=== PATIENT | female | born 1960 | race Two or more races ===

== ENCOUNTER 2024-11-22 16:58 | Emergency (ER) | payer MEDICAID, OTHER ==
[~2024-11-22] VITALS: Ht 162.6 cm; Wt 72.6 kg
[2024-11-22 18:57] LABS: Basophils # (auto) 0.1 10 ^3/uL (0-0.2); Basophils % (auto) 0.7 % (0.0-2.0); Eosinophils # (auto) 0.3 10 ^3/uL (0-0.8); Eosinophils % (auto) 3.6 % (0.0-7.0); Hematocrit 41.4 % (36.0-46.0); Hemoglobin 13.8 g/dL (12.2-16.2); Lymphocytes # (auto) 2.6 10 ^3/uL (0.4-5.4); Lymphocytes % (auto) 31.3 % (10.0-50.0); Mean Corpuscular Hemoglobin 31.3 pg (28.0-32.0); Mean Corpuscular Hgb Conc. 33.4 g/dL (32.0-36.0); Mean Corpuscular Volume 93.7 fL (80.0-100.0); Monocytes # (auto) 0.6 10 ^3/uL (0-1.3); Monocytes % (auto) 7.1 % (0.0-12.0); Neutrophils # (auto) 4.8 10 ^3/uL (1.6-8.6); Neutrophils % (auto) 57.3 % (37.0-80.0); Nucleated Red Blood Cells % 0.1 %; Platelet Count (auto) 281 10^3/uL (140-450); Red Blood Cells 4.42 10^6/uL (4.0-5.20); Red Cell Distribution Width 12.9 % (11.8-14.3); White Blood Cell 8.4 10^3/uL (4.4-10.8)
[2024-11-22 19:18] LABS: Alanine Aminotransferase 25 U/L (7-40); Albumin 4.7 g/dL (3.2-4.8); Alkaline Phosphatase 97 U/L (46-116); Anion Gap 7 (5-15); Aspartate Aminotransferase 24 U/L (13-40); BUN/Creatinine Ratio 14.8 (10.0-20.0); Blood Urea Nitrogen 12 mg/dL (9-23); Calcium 10.3 mg/dL (8.7-10.4); Carbon Dioxide 28 mmol/L (20-31); Chloride 105 mmol/L (98-107); Glucose 95 mg/dL (74-106); Lipase 51 U/L (12-53); Potassium 4.4 mmol/L (3.5-5.1); Sodium 140 mmol/L (136-145); Total Protein 7.3 g/dL (5.7-8.2)
--- NOTE | 2024-11-22 19:18 | DVH ---
EXAMINATION: AP portable chest radiograph CLINICAL HISTORY: Shortness a breath COMPARISON: None FINDINGS: Mild central interstitial prominence. No dominant consolidation. The costophrenic angles appear yudelka ar. No sizable pleural effusion or pneumothorax identified. Aortic calcifications. The cardiomediast inal silhouette otherwise appears within normal limits given technique. IMPRESSION: Mild central interstitial prominence is relatively nonspecific but can be seen with edema, reactive a irway changes as well as atypical / viral infection. Please correlate clinically.
[2024-11-22 19:23] LABS: Bilirubin, Total 0.3 mg/dL (0.2-1.0)
--- NOTE | 2024-11-22 22:36 | ED.PDOC ---
History of Present Illness HPI Comments This patient is a 64-year-old [id number]-iftlmwoy female who arrives the ED today with the family due to complaints of generalized weakness and fall events over the past 12 days. Family states the patient should signs of weakness at that time and that it has been relatively consistent. Family denies any nausea or vomiting but states possible intermittent fever. Patient was hypertensive on arrival. Family states the patient does have a history of hypertension and does utilize medication. Chief Complaint: General Weakness Time Seen by MD: 17:44 Reviewed Notes: Nurses Notes Allergies: Coded Allergies: NO KNOWN ALLERGIES (Unverified , 11/22/24) Information Source: Patient, Relative Mode of Arrival: Ambulatory Severity: Moderate Timing: Weeks Duration: Since onset Prehospital treatment: None Past Medical History PAST MEDICAL HISTORY: HTN Surgical History: Denies all surgeries MEDICAL PARASITOLOGIST History: No Pertinent MEDICAL PARASITOLOGIST History Family History Family History: Reviewed,noncontributory to illness, No family hx of Cancer, No family hx of DM, No family hx of Heart mena, No family hx of HTN, No family hx ofKidney mena, No family hx of Liver mena, No family hx of Lung mena, No family hx of Stroke Social History Smoker: Non-Smoker Alcohol: Denies ETOH Use Drugs: Denies Drug Use Lives In: Home Constitutional: reports: fatigue, fever, malaise, weakness; denies: chills, diaphoresis, sweats, others EENTM: denies: blurred vision, double vision, ear bleeding, ear discharge, ear drainage, ear pain, ear ringing, eye pain, eye redness, hearing loss, mouth pain, mouth swelling, nasal discharge, nose bleeding, nose congestion, nose pain, photophobia, tearing, throat pain, throat swelling, voice changes, others Respiratory: denies: cough, hemoptysis, orthopnea, SOB at rest, shortness of breath, SOB with excertion, stridor, wheezing, others Cardiovascular: denies: chest pain, dizzy spells, diaphoresis, Dyspnea on exertion, edema, irregular heart beat, left arm pain, lightheadedness, palpitations, PND, syncope, others Gastrointestinal: denies: abdomen distended, abdominal pain, blood streaked bowels, constipated, diarrhea, dysphagia, difficulty swallowing, hematemesis, melena, nausea, poor appetite, poor fluid intake, rectal bleeding, rectal pain, vomiting, others Genitourinary: denies: abnormal vagina bleeding, burning, dyspareunia, dysuria, flank pain, frequency, hematuria, incontinence, pain, , vagina discharge, urgency, others Neurological: denies: dizziness, fainting, headache, left sided numbness, left sided weakness, numbness, paresthesia, pre-existing deficit, right sided numbness, right sided weakness, seizure, speech problems, tingling, tremors, weakness, others Musculoskeletal: denies: back pain, gout, joint pain, joint swelling, muscle pain, muscle stiffness, neck pain, others Integumetry: denies: bruises, change in color, change in hair/nails, dryness, laceration, lesions, lumps, rash, wounds, others Allergic/Immunocompromised: denies: Difficulty Healing, Frequent Infections, Hives, Itching, others Hematologic/Lymphatic: denies: anemia, blood clots, easy bleeding, easy bruising, swollen glands, others Endocrine: denies: excessive hunger, excessive sweating, excessive thirst, excessive urination, flushing, intolerance to cold, intolerance to heat, unexplained weight gain, unexplained weight loss, others Psychiatric: denies: anxiety, bipolar disorder, depression, hopeless, panic disorder, schizophrenia, sleepless, suicidal, others Physical Exam General Appearance: Moderate Distress (Patient appears a hofr-sp-frjyljuobr ill 64-year-old female.), Normal HEENT: Normal ENT Inspection, Pharynx Normal, TMs Normal Neck: Full Range of Motion, Non-Tender, Normal, Normal Inspection Respiratory: Chest Non-Tender, Lungs Clear, No Accessory Muscle Use, No Respiratory Distress, Normal Breath Sounds Cardiovascular: No Edema, No JVD, No Murmur, No Gallop, Normal Peripheral Pulses, Regular Rate/Rhythm Breast Exam: Deferred Gastrointestinal: No Organomegaly, Non Tender, No Pulsatile Mass, Normal Bowel Sounds, Soft Genitalia: Deferred Pelvic: Deferred Rectal: Deferred Extremities: No calf tenderness, Normal capillary refill, Normal range of motion, Non-tender, No pedal edema Neurologic: Alert, No Motor Deficits, Normal Mood, No Sensory Deficits Cerebellar Function: Normal Reflexes: Normal Skin: Dry, Normal Color, Warm Lymphatic: No Adenopathy Was a procedure done? Was a procedure done?: No Differential Dx Considerations may include: Sepsis, electrolyte abnormality, UTI, pneumonia, viral illness X-Ray, Labs, Meds, VS Vital Signs Date Time Temp Pulse Resp B/P (MAP) Pulse Ox O2 Delivery O2 Flow Rate FiO2 11/22/24 21:47 98.2 69 18 146/86 (106) 98 98.2 11/22/24 17:49 83 11/22/24 17:49 99.0 81 18 173/93 (119) 97 Lab Test 11/23/24 01:27 11/23/24 00:17 11/22/24 19:45 11/22/24 18:28 Range/Units Urine Color Light-yellow Yellow Urine Clarity Clear Clear Urine pH 6.0 5.0-9.0 Urine Specific [place] 1.016 1.001-1.035 Urine Protein Negative Negative Urine Ketones Negative Negative Urine Blood Negative Negative /uL Urine Nitrite Negative Negative Urine Bilirubin Negative Negative Urine Urobilinogen Normal Negative mg/dL Urine Leukocyte Esterase 2+ Negative /uL Urine RBC 3 0 - 4 /hpf Urine WBC 13 0 - 5 /hpf Urine Squamous Epithelial Cells Few <5 /hpf Urine Bacteria None seen None Seen /hpf Urine Yeast (Budding) Occasional None Seen /hpf Urine Glucose Normal Normal mg/dL Influenza Type A Antigen Negative Negative Influenza Type B Antigen Negative Negative SARS-CoV-2 Antigen (Rapid) Negative NEGATIVE Troponin I High Sensitivity < 3 L < 3 L </=34 ng/L White Blood Count 8.4 4.4-10.8 10^3/uL Red Blood Count 4.42 4.0-5.20 10^6/uL Hemoglobin 13.8 12.2-16.2 g/dL Hematocrit 41.4 36.0-46.0 % Mean Corpuscular Volume 93.7 80.0-100.0 fL Mean Corpuscular Hemoglobin 31.3 28.0-32.0 pg Mean Corpuscular Hemoglobin Concent 33.4 32.0-36.0 g/dL Red Cell Distribution Width 12.9 11.8-14.3 % Platelet Count 281 140-450 10^3/uL Mean Platelet Volume 8.9 6.9-10.8 fL Neutrophils (%) (Auto) 57.3 37.0-80.0 % Lymphocytes (%) (Auto) 31.3 10.0-50.0 % Monocytes (%) (Auto) 7.1 0.0-12.0 % Eosinophils (%) (Auto) 3.6 0.0-7.0 % Basophils (%) (Auto) 0.7 0.0-2.0 % Neutrophils # (Auto) 4.8 1.6-8.6 10 ^3/uL Lymphocytes # (Auto) 2.6 0.4-5.4 10 ^3/uL Monocytes # (Auto) 0.6 0-1.3 10 ^3/uL Eosinophils # (Auto) 0.3 0-0.8 10 ^3/uL Basophils # (Auto) 0.1 0-0.2 10 ^3/uL Nucleated Red Blood Cells 0.1 % D-Dimer, Quantitative 0.58 H 0.0-0.49 mg/L FEU Sodium Level 140 136-145 mmol/L Potassium Level 4.4 3.5-5.1 mmol/L Chloride Level 105 98-107 mmol/L Carbon Dioxide Level 28 20-31 mmol/L Anion Gap 7 5-15 Blood Urea Nitrogen 12 9-23 mg/dL Creatinine 0.81 0.550-1.02 mg/dL Glomerular Filtration Rate Calc 81 >90 mL/min BUN/Creatinine Ratio 14.8 10.0-20.0 Serum Glucose 95 74-106 mg/dL Calcium Level 10.3 8.7-10.4 mg/dL Total Bilirubin 0.3 0.2-1.0 mg/dL Aspartate Amino Transferase (AST) 24 13-40 U/L Alanine Aminotransferase (ALT) 25 7-40 U/L Alkaline Phosphatase 97 46-116 U/L B-Type Natriuretic Peptide 13.36 0-100 pg/mL Total Protein 7.3 5.7-8.2 g/dL Albumin 4.7 3.2-4.8 g/dL Lipase 51 12-53 U/L X-Ray, Labs, Meds, VS Comment All studies performed the ED were evaluated by me personally. Serum studies were unremarkable for any acute systemic process, but urinalysis confirmed a UTI. Imaging studies revealed what appears to be some consolidation and concerning for pneumonia. Patient will be given her 1st dose of antibiotics to address both concerns prior to discharge. Patient has been advised to utilize antibiotics as directed until completion as well as additional medication as needed. Time of 1ST Reevaluation: 02:15 Reevaluation 1ST: Improved Consultation: PCP Patient Education/Counseling: Diagnosis, Treatment Family Education/Counseling: Diagnosis, Treatment Departure 1 Departure Time of Disposition: 22:36 Impression: Primary Impression: UTI (urinary tract infection) Additional Impression: Pneumonia Disposition: HOME / SELF CARE / HOMELESS Condition: Fair Additional Instructions: Advised patient utilize antibiotics as directed until completion as well as additional medication as needed for symptomatic relief. e-Prescriptions Levofloxacin Hemihydrate (LEVAQUIN 500 MG) 500 Mg Tab 1 TAB PO DAILY for 7 Days, #7 TAB Prov: CHRIS SHELBY PAC 11/23/24 Acetaminophen (Acetaminophen) 500 Mg Tab 500 MG PO Q4HP PRN, #30 TAB Prov: CHRIS SHELBY PAC 11/23/24 Discharged With: Self, Relative Critical Care Note Critical Care Time?: No Stability Stability form required: No Heart Score Heart Score: Heart Score Response (Comments) Value History Slightly Suspicious 0 EKG Repolarization Disturb 1 Age 45-64 1 Risk Factors 1 or 2 risk factors 1 Troponin Normal limit 0 Total 3 CHRIS SHELBY PAC Nov 22, 2024 22:36
[2024-11-23 01:41] LABS: Urine Bacteria None Seen /hpf (None Seen)
[2024-11-23 01:51] LABS: Urine Blood Negative /uL (Negative); Urine Budding Yeast OCCASIONAL /hpf (None Seen); Urine Clarity Clear (Clear); Urine Color Light-Yellow (Yellow); Urine Protein, UAD Negative (Negative); Urine Specific Gravity 1.016 (1.001-1.035); Urine Squamous Epithelial Cell FEW /hpf (<5); Urine Urobilinogen Normal (Negative); Urine WBC 13 /hpf (0 - 5)
[2024-11-23 01:53] LABS: Rapid Influenza A Negative (Negative); Rapid Influenza B Negative (Negative)
[2024-11-23 01:54] LABS: COVID19 ANTIGEN SOFIA FIA NEGATIVE (NEGATIVE)
[2024-11-23] MEDS ORDERED: NITROFURANTOIN 100 mg CAP PO ONE (02:15)
[2024-11-23 02:16] VITALS: BP 133/78; TEMP 97.9
[2024-11-23] MEDS ORDERED: LEVO500T91 PO (02:16)
[2024-11-23] MEDS ORDERED: ACET500T58 PO (02:16)
[2024-11-23] MEDS: levoFLOXacin 250 MG TAB PO ONE (02:40)
[2024-11-23 03:35] VITALS: PULSE 81; RESP 18; O2SAT 97
--- NOTE | 2024-11-25 11:02 | ECG ---
[facility] Test Date: 2024-11-22 Test Time: 17:47:54 Pat Name: NIGEL LUGO Department: ER Room: Gender: F [employer]: Shashank : 1960 Requested By: CHRIS SHELBY Order Number: [id number] Reading MD: Measurements Intervals Reading Rate: 83 P: 24 MO: 141 QRS: -17 QRSD: 90 T: 7 QT: 369 QTc: 434 Interpretive Statements Sinus rhythm Borderline left axis deviation RSR' in V1 or V2, probably normal variant Borderline T abnormalities, anterior leads Please click the below link to view image of tracing.
== END 2024-11-23 03:38 | disposition home or self-care (01) ==
LOC: ER 16:58
DX: J18.9 Pneumonia, unspecified organism (principal); N39.0 Urinary tract infection, site not specified; I10 Essential (primary) hypertension; Z20.822 Contact with and (suspected) exposure to COVID-19; W18.09XA Striking against other object with subsequent fall, initial encounter; Y93.89 Activity, other specified; Y92.89 Other specified places as the place of occurrence of the external cause; Y99.8 Other external cause status
CPT/HCPCS: 36415; 71045; 80053; 81001; 83690; 83880; 84484; 85025; 85379; 87426; 87804; 93005